=== PATIENT | female | born 1995 | race Caucasian/White ===

== ENCOUNTER 2021-12-21 16:55 | Emergency (ER) | payer BC ==
--- NOTE | 2021-12-21 17:06 | ERPHSYRPT ---
- History of Present Illness Time Seen by Provider: 12/21/21 17:06 Source: patient Exam Limitations: no limitations Physician History: This is a 26-year-old white female who has had a miscarriage in the past as well as a single viable with early on vaginal spotting/bleeding during both pregnancies. Patient is also having some crampy suprapubic pain as well. She is approximately 7 weeks along. She has not seen a sweeping compound blender yet. However, next Friday, she will see the sweeping compound blender for her first visit. The patient's chain builder sent the patient to the emergency room for evaluation. Timing/Duration: today Activites at Onset: none Quality: cramping (Mild suprapubic) Onset Location: suprapubic Severity of Pain-Max: mild Severity of Pain-Current: mild Prior abdominal problems: none Sexual intercourse history: non-contributory Modifying Factors: Improves With: nothing Associated Symptoms: abdominal pain (Mild suprapubic), vaginal discharge (Spotting, mild bleeding) Allergies/Adverse Reactions: No Known Drug Allergies Allergy (Unverified 12/21/21 17:07) Home Medications: Pnv No.95/Ferrous Fum/Folic AC [ Caplet] 1 tab PO DAILY 12/21/21 [ History] Travel Risk - International Travel Have you traveled outside of the country in past 3 weeks: No - Coronavirus Screening Are you exhibiting any of the following symptoms?: No Close contact with a COVID-19 positive Pt in past 14-21 Days: No - Review of Systems Constitutional: No Symptoms Eyes: No Symptoms Ears, Nose, & Throat: No Symptoms Respiratory: No Symptoms Cardiac: No Symptoms Abdominal/Gastrointestinal: Abdominal Pain (Mild suprapubic cramping) Genitourinary Symptoms: Vaginal Bleeding Musculoskeletal: No Symptoms Skin: No Symptoms Neurological: No Symptoms Psychological: No Symptoms Endocrine: No Symptoms Hematologic/Lymphatic: No Symptoms Immunological/Allergic: No Symptoms All Other Systems: Reviewed and Negative - Past Medical History Pertinent Past Medical History: No - Past Surgical History Past Surgical History: No - Nursing Vital Signs Nursing Vital Signs: Initial Vital Signs Temperature 98.2 F 12/21/21 17:17 Pulse Rate 93 H 12/21/21 17:17 Respiratory Rate 17 12/21/21 17:17 Blood Pressure 116/63 12/21/21 17:17 O2 Sat by Pulse Oximetry 100 12/21/21 17:17 Pain Scale Pain Intensity 0 - Physical Exam General Appearance: no apparent distress, alert, anxiety, thin Eye Exam: PERRL/EOMI, eyes nml inspection Ears, Nose, Throat Exam: normal ENT inspection, moist mucous membranes Neck Exam: normal inspection, non-tender, supple, full range of motion Respiratory Exam: airway intact, No chest tenderness, No respiratory distress Gastrointestinal/Abdomen Exam: soft, normal bowel sounds, tenderness (Mild suprapubic), No guarding, No rebound Pelvic Exam: not done Rectal Exam: not done Back Exam: normal inspection, normal range of motion, No CVA tenderness, No vertebral tenderness Extremity Exam: normal inspection, normal range of motion, pelvis stable Neurologic Exam: alert, oriented x 3, cooperative, free lance artist II-XII nml as tested, normal mood/affect, nml cerebellar function, nml station & gait, sensation nml Skin Exam: normal color, warm, dry Lymphatic Exam: No adenopathy SpO2 Interpretation: normal O2 Delivery: Room Air - Course Nursing assessment & vital signs reviewed: Yes Ordered Tests: Active Orders 24 hr Category Date Time Status OB <14 WKS 1ST GESTATION [US] Stat Exams 12/21/21 17:25 Ordered CBC W DIFF Stat Lab 12/21/21 17:45 Completed HCG, Quantitative (Inhouse) Stat Lab 12/21/21 17:45 Completed UA W/RFX CULTURE Stat Lab 12/21/21 18:12 Completed Lab/Rad Data: Laboratory Result Diagrams 12/21/21 17:45 Laboratory Results 12/21/21 12/21/21 12/21/21 Range/Units 18:12 17:45 17:45 WBC 8.9 (4.0-10.5) x10^3/uL RBC 4.72 (4.1-5.4) x10^6/uL Hgb 14.6 (12.0-16.0) g/dL Hct 43.1 (35-47) % MCV 91.3 (78-100) fL MCH 30.9 (26-32) pg MCHC 33.9 (32-36) g/dL RDW 11.8 (11.5-14.0) % Plt Count 302 (150-450) x10^3/uL MPV 9.7 (7.5-11.0) fL Gran % 70.1 H (36.0-66.0) % Immature Gran % (Auto) 0.2 (0.00-0.4) % Nucleat RBC Rel Count 0.0 (0.00-0.1) % Eos # (Auto) 0.03 (0-0.5) x10^3/uL Immature Gran # (Auto) 0.02 (0.00-0.03) x10^3u/L Absolute Lymphs (auto) 1.96 (1.0-4.6) x10^3/uL Absolute Monos (auto) 0.64 (0.0-1.3) x10^3/uL Absolute Nucleated RBC 0.00 (0.00-0.01) x10^3u/L Lymphocytes % 21.9 L (24.0-44.0) % Monocytes % 7.2 (0.0-12.0) % Eosinophils % 0.3 (0.00-5.0) % Basophils % 0.3 (0.0-0.4) % Absolute Granulocytes 6.26 (1.4-6.9) x10^3/uL Basophils # 0.03 (0-0.4) x10^3/uL Beta HCG, Quant 6467.6 mIU/ml Urinalys Dipstick Clnc MAIN LAB Urine Color YELLOW (YELLOW) Urine Appearance CLEAR (CLEAR) Urine pH 6.5 (5-6) Ur Specific [place] 1.020 (1.005-1.025) POC Urine Protein Conf NEGATIVE (Negative) Urine Ketones TRACE (NEGATIVE) Urine Nitrite NEGATIVE (NEGATIVE) Urine Bilirubin NEGATIVE (NEGATIVE) Urine Urobilinogen 0.2 (0-1) mg/dL Urine Leukocytes NEGATIVE (NEGATIVE) Urine WBC (Auto) 0-2 (0-5) /HPF Urine RBC (Auto) NONE (0-2) /HPF U Epithel Cells (Auto) RARE (FEW) /HPF Urine RBC SMALL (0-5) Derek/ul Urine Mucus (Auto) SLIGHT (NEGATIVE) /HPF Ur Culture Indicated? NO Urine Glucose NEGATIVE (NEGATIVE) mg/dL - Progress Progress: improved, re-examined Air Movement: good Progress Note: 12/21/21 19:05 Pelvic ultrasound shows a viable fetus with a normal heart rate in the 130s. It is intrauterine and it is single. Blood Culture(s) Obtained: No Antibiotics given: No Counseled pt/family regarding: lab results, diagnosis, need for follow-up, rad results - Departure Departure Disposition: Home Clinical Impression: Vaginal spotting, First trimester Condition: Stable Critical Care Time: No Additional Instructions: Drink plenty of fluids. Follow-up with your chain builder as instructed.
[2021-12-21 17:22] VITALS: BP 116/63; PULSE 93; O2SAT 100
[2021-12-21 17:46] LABS: Absolute Neutrophil Ct (ANC) 6.26 x10^3/uL (1.4-6.9); Basophil (Absolute #) 0.03 x10^3/uL (0-0.4); Eosinophil % 0.3 % (0.00-5.0); Eosinophil (Absolute #) 0.03 x10^3/uL (0-0.5); Hematocrit 43.1 % (35-47); Hemoglobin 14.6 g/dL (12.0-16.0); Lymphocyte (Absolute #) 1.96 x10^3/uL (1.0-4.6); Lymphocytes % 21.9 % (24.0-44.0); Mean Cell Volume 91.3 fL (78-100); Mean Corpuscular Hemoglobin 30.9 pg (26-32); Mean Corpuscular Hgb Concent. 33.9 g/dL (32-36); Mean Platelet Volume 9.7 fL (7.5-11.0); Monocyte (Absolute #) 0.64 x10^3/uL (0.0-1.3); Monocytes % 7.2 % (0.0-12.0); Neutrophil % 70.1 % (36.0-66.0); Platelet Count 302 x10^3/uL (150-450); Red Blood Count 4.72 x10^6/uL (4.1-5.4); Red Cell Distribution Width 11.8 % (11.5-14.0); White Blood Count 8.9 x10^3/uL (4.0-10.5)
[2021-12-21 18:40] LABS: Epithelial Cells RARE /HPF (FEW); Mucus SLIGHT /HPF (NEGATIVE); WBC 0-2 /HPF (0-5)
[2021-12-21 18:42] LABS: Appearance CLEAR (CLEAR); Bilirubin NEGATIVE (NEGATIVE); Glucose NEGATIVE (NEGATIVE); Ketones TRACE (NEGATIVE); Nitrite NEGATIVE (NEGATIVE); Ph 6.5 (5-6); Protein,Urine Dip NEGATIVE (Negative); RBC SMALL Ery/ul (0-5); Urine Cultured Indicated? NO; Urobilinogen 0.2 mg/dL (0-1)
[2021-12-21 18:43] LABS: Dipstick done @ ? MAIN LAB
--- NOTE | 2021-12-21 22:36 | XRAY ---
Indication: Vaginal bleeding. Ectopic . 2-dimensional transabdominal and transvaginal early OB ultrasound performed. Comparison: None Uterus anteverted with a single intrauterine gestational sac and pole. Mean crown-rump length measures 0.99 cm corresponding to 7 weeks 1 day. heart rate 137 BPM. Tiny 4 mm subchorionic hemorrhage. Left and right ovaries are sonographically unremarkable with normal color perfusion. No suspicious adnexal mass or free fluid. Impression: Single viable intrauterine measuring 7 weeks 1 day. Expected date confinement is August 08, 2022. Tiny subchorionic hemorrhage. Comment: Preliminary report given.
== END 2021-12-21 19:16 | disposition home or self-care (01) ==
LOC: ED 16:55
DX: O26.851 Spotting complicating pregnancy, first trimester (principal); Z3A.01 Less than 8 weeks gestation of pregnancy; R10.2 Pelvic and perineal pain
CPT/HCPCS: 36415; 76801; 81015; 84702; 85025; 99283